=== PATIENT | female | born 1990 | race African-American/Black ===

== ENCOUNTER → 2017-01-03 | Outpatient (CLI) | payer BC ==
[~2017-01-03] MED LIST: NO MEDICATIONS
--- NOTE | ~2017-01-03 | EKG ---
PATIENT: BHAVANA OSBORNE UNIT #: [id number] Ventricular Rate: 93 BPM Atrial Rate: 93 BPM P-R Interval: 152 ms QRS Duration: 82 ms Q-T Interval: 360 ms QTC Calculation(Bezet): 447 ms P [place]: 24 degrees Calculated R [place]: 41 degrees Calculated T [place]: 20 degrees Diagnosis Line: Normal sinus rhythm Diagnosis Line: Normal ECG Diagnosis Line: No previous ECGs available Diagnosis Line: Confirmed by NEGRO COLVIN MD ([id number]) on Diagnosis Line: 01/04/2017 4:25:23 PM INTERPRETING MD: VINICIUS THORNTON
--- NOTE | ~2017-01-03 | CR63 ---
[facility] A Service of [facility] & [facility] RADIOLOGY TEXT RESULTS PATIENT: BHAVANA OSBORNE LOCATION: [facility] : [birth year] UNIT #: [id number] AGE: [address]: Miguel Quintanilla III, MD SEX: F ORDER DR: [id number] [facility] [address] [place], [place] [address] [id number] O MR#: [id number] Acc #: [id number] NAME: BHAVANA OSBORNE : 1990 SEX: F STUDY DATE/TIME: 01/03/2017 8:28 UNIT: [facility] ROOM: STUDY DESCRIPTION: CR Chest 2 View Attending Physician: Miguel Quintanilla III, M.D. Referring Physician: Miguel Quintanilla III, M.D. Ordering Physician: Miguel Quintanilla III, M.D. Primary Care Physician: Primary Care Physician No MEDICAL IMAGING REPORT This report is preliminary unless electronic signature is present EXAM PA and lateral chest INDICATION Preop for Lap-Band surgery. No comparisons. FINDINGS The lungs are well expanded and clear. The heart size is normal. Visualized osseous structures are unremarkable. IMPRESSION Negative chest. Dictated by... Oliver Randolph M.D. THIS IS AN ELECTRONICALLY VERIFIED REPORT Oliver Randolph M.D. at 01/06/2017 7:37 AM CYNTHIA/bella TD: 01/03/2017 09:31 JOB #: [id number] MEDICAL IMAGING REPORT Page 1 of 1 COPY
--- NOTE | ~2017-01-03 | CR97 ---
[facility] A Service of [facility] & [facility] RADIOLOGY TEXT RESULTS PATIENT: BHAVANA OSBORNE LOCATION: [facility] : [birth year] UNIT #: [id number] AGE: [address]: Miguel Quintanilla III, MD SEX: F ORDER DR: [id number] [address] [address] [id number] O MR#: [id number] Acc #: [id number] NAME: BHAVANA OSBORNE : 1990 SEX: F STUDY DATE/TIME: 01/03/2017 8:54 UNIT: [facility] ROOM: STUDY DESCRIPTION: CR Esophagram Attending Physician: Miguel Quintanilla III, M.D. Referring Physician: Miguel Quintanilla III, M.D. Ordering Physician: Miguel Quintanilla III, M.D. Primary Care Physician: Primary Care Physician No MEDICAL IMAGING REPORT This report is preliminary unless electronic signature is present EXAM Esophagram with fluoroscopy 01/03/2017 HISTORY Preop evaluation for gastric band procedure. Evaluate for paraesophageal hernia. COMPARISON None. FINDINGS Rapid fluoroscopic imaging was obtained of the esophagus during the ingestion of thin consistency barium in various projections. Normal esophageal distensibility without stricture or mass lesion seen. Normal peristaltic stripping wave. No hiatal hernia is identified. 34 spot fluoroscopic images were obtained. Fluoroscopy time 0.3 minutes. IMPRESSION Normal esophagram. Dictated by... Elisa Guevara M.D. THIS IS AN ELECTRONICALLY VERIFIED REPORT Elisa Guevara M.D. at 01/06/2017 8:32 AM BENNIE/bella TD: 01/03/2017 13:08 JOB #: [id number] MEDICAL IMAGING REPORT [facility] A Service [facility] & [facility] RADIOLOGY TEXT RESULTS PATIENT: BHAVANA OSBORNE LOCATION: [facility] : 92 UNIT #: [id number] AGE: [address]: Miguel Quintanilla III, MD SEX: F ORDER DR: Page 1 of 1 COPY
[2017-01-03 09:34] LABS: HEMATOCRIT 37.8 % (35.0-45.0); HEMOGLOBIN 12.6 gm/dL (12.0-16.0); MEAN CELL VOLUME 87.4 FL (83-96); MEAN CORPUSCULAR HEMOGLOBIN 29.1 PG (28-34); MEAN CORPUSCULAR HGB CONC 33.3 g/dL (30-36); MEAN PLATELET VOLUME 7.2 FL (6.5-11.5); RED BLOOD COUNT 4.32 X10e (3.90-5.30); RED CELL DISTRIBUTION WIDTH 14.7 % (11.0-15.5); WHITE BLOOD COUNT 9.7 X10e3 (4.0-10.5)
[2017-01-03 11:02] LABS: ALBUMIN SERUM 3.5 g/dL (3.5-5.0); BILIRUBIN,TOTAL 0.3 mg/dL (0.2-2.0); CALCIUM SERUM 8.6 mg/dL (8.4-10.2); CREATININE SERUM 0.5 mg/dL (0.6-1.4); POTASSIUM 4.1 mmol/L (3.5-5.1); PROTEIN TOTAL SERUM 6.4 g/dL (6.0-8.3)
== END | disposition home or self-care (01) ==
LOC: CRAD 08:06 → CAMB 10:00
PROVIDERS: Surgery
DX: Z01.818 Encounter for other preprocedural examination (principal)
CPT/HCPCS: 36415; 71020; 74220; 80053; 80061; 84443; 85027; 93005

== ENCOUNTER → 2017-01-15 | Day surgery (SDC) | payer BC ==
--- NOTE | ~2017-01-15 | CR7 ---
[facility] A Service of [facility] & [facility] RADIOLOGY TEXT RESULTS PATIENT: BHAVANA OSBORNE LOCATION: [facility] : [birth year] UNIT #: [id number] AGE: [address]: Miguel Quintanilla III, MD SEX: F ORDER DR: [id number] [facility] [address] [facility]. [place], [place] [address] [id number] O MR#: [id number] Acc #: [id number] NAME: BHAVANA OSBORNE : 1990 SEX: F STUDY DATE/TIME: 01/15/2017 8:56 UNIT: [facility] ROOM: STUDY DESCRIPTION: CR Abdomen Single AP View Attending Physician: Miguel Quintanilla III, M.D. Ordering Physician: Miguel Quintanilla III, M.D. Primary Care Physician: Primary Care Physician No MEDICAL IMAGING REPORT This report is preliminary unless electronic signature is present EXAM KUB 01/15/17 INDICATIONS Gastric band placement today. FINDINGS Supine view of the abdomen was obtained. The gastric band has been placed with phi angle of 60 degrees. The port is in the left lower quadrant. Bowel gas pattern is normal. IMPRESSION Gastric band in place with phi angle of 60 degrees. Dictated by... Olegario Cueva Jr., M.D. THIS IS AN ELECTRONICALLY VERIFIED REPORT Olegario Cueva Jr., M.D. at 01/15/2017 4:24 PM SILKE/yohan TD: 01/15/2017 12:21 JOB #: [id number] MEDICAL IMAGING REPORT Page 1 of 1 COPY
--- NOTE | ~2017-01-15 | OR ---
Unit #: [id number] #: [id number] Patient: BHAVANA OSBORNE [id number] [facility] [address] [facility] [place], [place] [address] [id number] O MR#: [id number] NAME: BHAVANA OSBORNE ROOM: Date of Procedure: 01/15/2017 Admission Date: 01/15/2017 Surgeon: Miguel Quintanilla III, M.D. : 1990 Attending Physician: Miguel Quintanilla III, M.D. OPERATIVE REPORT PREOPERATIVE DIAGNOSIS Chronic morbid obesity. POSTOPERATIVE DIAGNOSIS Chronic morbid obesity. SECONDARY DIAGNOSIS Anterior paraesophageal hernia. PROCEDURES PERFORMED Laparoscopic adjustable gastric banding (AP standard with low-profile port) and laparoscopic paraesophageal hernia repair. LIVING MANAGER Dr. Monico Snow. SPECIMENS None. COMPLICATIONS None apparent. ESTIMATED BLOOD LOSS Minimal. INDICATIONS FOR PROCEDURE This is a 26-year-old lady, who has chronic morbid obesity with a BMI of 57 and no associated comorbidities. She has been through the bariatric program at [facility] and understands risks and benefits of the procedure. DESCRIPTION OF PROCEDURE After consent was obtained, including the risks and benefits of slippage, erosion, port dysfunction, and possible failure of weight loss due to noncompliance, the patient was taken to the operating room and placed in the supine position. General anesthetic was administered and the abdomen was prepped and draped in standard surgical fashion. I began by making a 2 cm incision just above and to the left of the umbilicus. I used a Visiport to enter the peritoneal cavity without any difficulty. C02 pneumoperitoneum was then established. Next, I placed a 5 mm port in the right upper quadrant, a 5 mm Brandon liver retractor in Unit #: [id number] #: [id number] Patient: BHAVANA OSBORNE the subxiphoid region to provide exposure of the gastroesophageal junction. Next, a 10 mm port was placed in the left upper quadrant and a 5 mm port was placed in the left lateral subcostal region. I began by performing an examination of the GE junction to evaluate for a hiatal hernia. We then scored the peritoneal attachments overlying the angle of His. I then opened up the clear space in the gastrohepatic ligament, and then using 2 blunt graspers, I identified the small fat pad crossing over the right crura. I swept the fat anterior to the crura off the crura and using the pars flaccida, I created a retrogastric tunnel where the blunt grasper exited at the angle of His. Once I had made this tunnel safely, I then inserted an Allergan AP band into the abdominal cavity. This adjustable gastric band was then place around the upper part of the stomach and fastened and buckled anteriorly. We then tacked the lateral fundus over the band to the proximal pouch with 2 interrupted 0 Ethibond sutures. I then used a third stitch to imbricate the excess anterior stomach by going from the lesser curvature up towards where the last stitch was placed. We then had excellent hemostasis. I removed the Brandon liver retractor. We then removed the port tubing through the initial port incision. The rest of the ports were removed, and the pneumoperitoneum was released. I then left a small tail on the tubing. We then attached the port to the excess band tubing. We placed a piece of Prolene mesh along the back side of the port and used a Prolene stitch to anchor this mesh in place. We then trimmed the excess mesh so that just a small footprint of mesh was in place behind the port. I then inserted the tubing back into the abdominal cavity, and we placed the port into a small pocket that was made just inferior to where our initial port incision was made. The mesh was in direct contact with the fascia, and this will scar in place to hold the port in place. We then injected all the port sites with 0.25% plain Marcaine, and I reapproximated the skin edges with interrupted 4-0 Vicryl subcuticular sutures. Steri-strips were then applied. The patient tolerated the procedure without any problems and returned to the recovery room in stable condition. ADDENDUM After exposure of the GE junction, the patient was noted have a small to medium size anterior paraesophageal hernia. I scored the phrenoesophageal ligament, reduced the hernia defect including the hernia sac and after identifying both the right and left crura, I reapproximated the defect with an interrupted 0 Ethibond [id number] suture. I then proceeded with the case as listed above. Dictated by... Miguel Quintanilla III, M.D. VCL/ryann TD: 01/15/2017 17:08 JOB #: [id number] Unit #: [id number] #: [id number] Patient: BHAVANA OSBORNE OPERATIVE REPORT Page 1 of 1 X Miguel Quintanilla III, MD PROCEDURE OPERATIVE NOTE
== END | disposition home or self-care (01) ==
LOC: CSUR 05:56
DX: E66.01 Morbid (severe) obesity due to excess calories (principal); K44.9 Diaphragmatic hernia without obstruction or gangrene; Z68.43 Body mass index [BMI] 50.0-59.9, adult; Z87.891 Personal history of nicotine dependence; Z98.890 Other specified postprocedural states
CPT/HCPCS: 74000; 84703; C1781; J0330; J0690; J1650; J1885; J2250; J2405; J2710; J3010